=== PATIENT | male | born 1965 | race Caucasian/White ===

== ENCOUNTER 2019-01-23 02:02 | Inpatient (IN) | payer MEDICAID ==
[~2019-01-23] VITALS: Ht 165.1 cm; Wt 104.5 kg
[2019-01-23] MEDS ORDERED: ACETAMINOPHEN 325MG TABLET PO STA (02:23)
[2019-01-23] MEDS ORDERED: CEFTRIAXONE 1 G PREMIX 50 ML IV ONE (02:30)
[2019-01-23] MEDS ORDERED: SODIUM CHLORIDE 0.9% 1000ML BAG (SEPSIS BOLUS) IV ONE (02:30)
[2019-01-23] MEDS ORDERED: AZITHROMYCIN 500 MG in DEXT 5% WATER 250 ML IV ONE (02:30)
[2019-01-23 02:37] LABS: BASOPHILS % 0.7 % (0.0-2.0); EOSINOPHILS % 0.2 % (0.0-5.0); HEMATOCRIT. 46.7 % (42.0-52.0); HEMOGLOBIN. 15.7 g/dL (14.0-18.0); MEAN CORPUSCULAR HEMOGLOBIN 29.6 pg (28.0-32.0); MEAN CORPUSCULAR VOLUME 87.8 fL (80.0-94.0); MEAN PLATELET VOLUME 7.5 fl (7.4-10.4); MONOCYTES % 7.7 % (2.0-8.0); NEUTROPHILS % 83.4 % (40.0-76.0); PLATELET 266 x1000/uL (130-400); RED BLOOD CELL COUNT 5.31 mill/uL (4.7-6.1); RED CELL DISTRIBUTION WIDTH 13.7 % (11.6-14.6)
[2019-01-23 02:45] LABS: CHLORIDE 106 mEq/L (98-107)
[2019-01-23 03:44] LABS: CLARITY URINE CLEAR (CLEAR); COLOR URINE YELLOW (YELLOW); KETONES URINE NEGATIVE (NEGATIVE); LEUKOCYTE ESTERASE URINE NEGATIVE (NEGATIVE); NITRITE URINE NEGATIVE (NEGATIVE); OCCULT BLOOD URINE NEGATIVE (NEGATIVE); PROTEIN URINE NEGATIVE (NEGATIVE); SPECIFIC GRAVITY URINE 1.019 (1.005-1.030); UROBILINOGEN URINE 0.2 E.U./dL (0.2-1.0)
[2019-01-23] MEDS ORDERED: HYDROCODONE/ACETAMINOPHEN 5/325MG TABLET PO PRN (10:30)
[2019-01-23 12:00] VITALS: BP 131/73
[2019-01-23] MEDS ORDERED: TAMS0.4C31 PO (12:50)
[2019-01-23] MEDS ORDERED: TRAZ-213 PO (12:50)
[2019-01-23] MEDS ORDERED: CHOL200077 PO (12:50)
[2019-01-23] MEDS ORDERED: IBUP-2030 PO (12:50)
[2019-01-23] MEDS ORDERED: ASPI-1158 PO (12:50)
[2019-01-23] MEDS ORDERED: IPRATROPIUM/ALBUTEROL 0.5-3(2.5)MG/3ML NEB HHN PRN (13:00)
[2019-01-23] MEDS ORDERED: ONDANSETRON HCL 4MG/2ML INJ IV PRN (13:00)
[2019-01-23 13:07] VITALS: BP 131/73
[2019-01-23] MEDS: ENOXAPARIN 30MG/0.3ML SYR SUBCUT SCH ×2 (13:30→23:43)
[2019-01-23] MEDS: HYDROCODONE/ACETAMINOPHEN 5/325MG TABLET PO PRN ×2 (14:47→19:18)
[2019-01-23 16:00] VITALS: BP 128/80
[2019-01-23] MEDS: SODIUM CHLORIDE 0.9% 1,000 ML IV SCH ×2 (17:30→23:44)
[2019-01-23 20:44] VITALS: BP 126/73
[2019-01-23 22:00] VITALS: BP 136/83
[2019-01-23] MEDS ORDERED: CEFTRIAXONE 1 G PREMIX 50 ML IV SCH (23:00)
[2019-01-23] MEDS: GUAIFENESIN-DM 200MG-20MG/10ML UDC PO PRN (23:50)
[2019-01-24] VITALS (7 sets, daily range): BP systolic 121–150; BP diastolic 73–89
[2019-01-24] MEDS: SODIUM CHLORIDE 0.9% 1,000 ML IV SCH (03:26)
[2019-01-24] MEDS: GUAIFENESIN-DM 200MG-20MG/10ML UDC PO PRN ×2 (05:13→11:38)
[2019-01-24] MEDS: ACETAMINOPHEN 325MG TABLET PO PRN ×2 (05:14→11:36)
[2019-01-24 06:22] LABS: BASOPHILS % 0.7 % (0.0-2.0); EOSINOPHILS % 0.3 % (0.0-5.0); HEMOGLOBIN. 14.6 g/dL (14.0-18.0); MEAN CORPUSCULAR HEMOGLOBIN 29.8 pg (28.0-32.0); MEAN CORPUSCULAR VOLUME 87.6 fL (80.0-94.0); MEAN PLATELET VOLUME 7.9 fl (7.4-10.4); MONOCYTES % 12.8 % (2.0-8.0); NEUTROPHILS % 74.2 % (40.0-76.0); PLATELET 230 x1000/uL (130-400); RED BLOOD CELL COUNT 4.91 mill/uL (4.7-6.1); RED CELL DISTRIBUTION WIDTH 14.2 % (11.6-14.6)
[2019-01-24 06:36] LABS: CHLORIDE 102 mEq/L (98-107)
[2019-01-24] MEDS ORDERED: AZITHROMYCIN 500 MG TABLET PO SCH (09:00)
[2019-01-24] MEDS: ENOXAPARIN 30MG/0.3ML SYR SUBCUT SCH ×2 (10:15→20:42)
[2019-01-24] MEDS: LORATADINE 10MG TABLET PO SCH (14:52)
[2019-01-24] MEDS: MONTELUKAST SODIUM 10MG TABLET PO SCH (17:00)
[2019-01-24] MEDS: FLUTICASONE PROPIONATE 50MCG/SPRAY BOTTLE BOTHNSTRLS SCH (19:09)
[2019-01-24] MEDS: AMOXICILLIN/POTASSIUM CLAVULANATE 875/125MG TAB PO SCH (20:42)
[2019-01-24] MEDS: HYDROCODONE/ACETAMINOPHEN 5/325MG TABLET PO PRN (20:47)
[2019-01-24] MEDS ORDERED: FAMOTIDINE 20MG TABLET PO SCH (21:00)
[2019-01-25 00:14] VITALS: BP 137/87
[2019-01-25 04:00] VITALS: BP 139/88
[2019-01-25] MEDS: ACETAMINOPHEN 325MG TABLET PO PRN ×2 (05:45→15:37)
[2019-01-25] MEDS: GUAIFENESIN-DM 200MG-20MG/10ML UDC PO PRN (05:49)
[2019-01-25 06:17] LABS: BASOPHILS % 0.4 % (0.0-2.0); EOSINOPHILS % 1.9 % (0.0-5.0); HEMATOCRIT. 43.7 % (42.0-52.0); HEMOGLOBIN. 14.9 g/dL (14.0-18.0); LYMPHOCYTES % 17.3 % (20.0-50.0); MEAN CORPUSCULAR HEMOGLOBIN 30.1 pg (28.0-32.0); MEAN CORPUSCULAR VOLUME 88.1 fL (80.0-94.0); MEAN PLATELET VOLUME 7.9 fl (7.4-10.4); MONOCYTES % 13.8 % (2.0-8.0); NEUTROPHILS % 66.6 % (40.0-76.0); PLATELET 245 x1000/uL (130-400); RED BLOOD CELL COUNT 4.95 mill/uL (4.7-6.1); RED CELL DISTRIBUTION WIDTH 14.2 % (11.6-14.6)
[2019-01-25 07:07] LABS: CHLORIDE 104 mEq/L (98-107)
[2019-01-25 08:30] VITALS: BP 118/83
[2019-01-25] MEDS: AMOXICILLIN/POTASSIUM CLAVULANATE 875/125MG TAB PO SCH (08:38)
[2019-01-25] MEDS: LORATADINE 10MG TABLET PO SCH (08:39)
[2019-01-25] MEDS: FLUTICASONE PROPIONATE 50MCG/SPRAY BOTTLE BOTHNSTRLS SCH (08:39)
[2019-01-25] MEDS: ENOXAPARIN 30MG/0.3ML SYR SUBCUT SCH (08:39)
[2019-01-25 12:01] VITALS: BP 127/89
[2019-01-25 16:03] VITALS: BP 122/78
[2019-01-25] MEDS: MONTELUKAST SODIUM 10MG TABLET PO SCH (16:39)
== END 2019-01-25 18:23 | disposition home or self-care (01) | DRG 720 ==
LOC: ER 02:02 → 6WST 05:21 → EDBEDREQSVC 05:24 → EDBEDREQ 05:24 → EDBEDREQTM 05:24 → ENRESERV 10:33
PROVIDERS: ADMIT Internal Medicine Nephrology; ATTEND Internal Medicine Nephrology
DX: A41.9 Sepsis, unspecified organism (principal); J96.00 Acute respiratory failure, unspecified whether with hypoxia or hypercapnia; J18.9 Pneumonia, unspecified organism; G44.209 Tension-type headache, unspecified, not intractable; J06.9 Acute upper respiratory infection, unspecified; N40.0 Benign prostatic hyperplasia without lower urinary tract symptoms; I10 Essential (primary) hypertension; J00 Acute nasopharyngitis [common cold]; J32.9 Chronic sinusitis, unspecified; J20.9 Acute bronchitis, unspecified; Z71.3 Dietary counseling and surveillance; Z68.38 Body mass index [BMI] 38.0-38.9, adult; E66.9 Obesity, unspecified
CPT/HCPCS: 36415; 71045; 80048; 83036; 83605; 83880; 84145; 85379; 87804; 93005; 96365; 96366; 96368; 99291; J0456; J0696; J1650; J2405; J7030; J7060